=== PATIENT | male | born 1965 | race Caucasian/White ===

== ENCOUNTER → 2016-09-28 | Outpatient (CLI) | payer OTHER ==
[2016-09-28 14:16] LABS: HEMOGLOBIN 17.3 g/dL (14.1-18.0); LYMPH # 1.5 K/mm3 (0.7-4.5)
[2016-09-28 14:55] LABS: BUN 18 mg/dL (7-18)
[2016-09-28 14:58] LABS: GFR (ESTIMATED) 71 ML/MIN (>60)
[2016-09-29 09:38] LABS: Folate (Folic Acid) 8.2 ng/mL (>3.0); Vitamin D, 25-Hydroxy 28.5 ng/mL (30.0-100.0)
[2016-09-29 14:08] LABS: URINE BILIRUBIN - DIPSTICK NEGATIVE (NEG); URINE BLOOD 1+ (NEG)
[2016-09-29 14:16] LABS: URINE SQUAMOUS CELLS OCC #/hpf (OCC)
== END ==
LOC: CARL-LAB 09:12
PROVIDERS: Emergency Medicine
DX: E11.9 Type 2 diabetes mellitus without complications (principal); E78.5 Hyperlipidemia, unspecified; I10 Essential (primary) hypertension
CPT/HCPCS: G0103